=== PATIENT | male | born 1950 | race Caucasian/White ===

== ENCOUNTER → 2018-01-09 12:50 | Outpatient (CLI) | payer MEDICARE ==
--- NOTE | ~2018-01-09 | EC ---
PATIENT:ANGELY URENA DATE OF SERVICE: 01/10/18 SEX: M MEDICAL RECORD: [id number] DATE OF : 54 LOCATION:[facility] AGE OF PATIENT: 67 ADMISSION DATE: 01/09/18 REFERRING PHYSICIAN: INTERPRETING PHYSICIAN: GUSTAVO WILLIAM MD ECHOCARDIOGRAM REPORT ECHO CHARGES CLINICAL DIAGNOSIS: ECHOCARDIOGRAPHIC MEASUREMENTS (adult normal given) AC root (d.<3.7cm) cm LV Septum d (<1.2 cm> cm Valve Excursion cm LV Septum (systole) cm Left Atria (s.<4.0cm> cm LVPW d(<1.2cm) cm RV (d.<2.3cm) cm LVPW (sytole) cm LV diastole(<5.6CM) cm MV E-F(>70mm/sec) cm LV systole cm LVOT Diameter cm MV exc.(>10mm) cm Est.ejection fraction (50-75%) % Pericardial Effusion DOPPLER: LVIT cm/sec A cm/sec E cm/sec LA cm/sec RVSP mmHg LVOT cm/sec AOP1/2T m/s Asc. Ao cm/sec RVOT cm/sec RA cm/sec PA cm/sec AV Gradient Peak mmHg AV Mean mmHg AV Area cm MV Gradient Peak mmHg MV Mean mmHg MV Area cm COMMENTS: Weathercaster: Materials Management Supervisor: LASHONDA DATE OF SERVICE: 01/09/2018 PROCEDURE: Transthoracic echocardiogram. FINDINGS: 1. The patient has difficult to view structures. Endocardium is difficult to evaluate; however, it appears the patient has mild concentric left ventricular hypertrophy. There is mild global hypokinesis with ejection fraction of 50% and inflow characteristics across the mitral valve are consistent with diastolic dysfunction. ECHOCARDIOGRAM REPORT [id number] ANGELY URENA 2. The aortic valve is trileaflet, normal structure, normal function. 3. The mitral valve has trace to mild mitral regurgitation, otherwise normal. 4. Tricuspid valve is normal. 5. Right ventricle is moderately dilated. 6. The right atrium is moderately dilated. Both have normal function. RVSP is normal. There is no pericardial effusion. Pulmonic valve is grossly normal. CONCLUSIONS: The patient has evidence of mild cardiomyopathy, mild dilatation of right-sided structures, and evidence of hypertensive heart disease. TRANSINT:[id number] Voice Confirmation ID: [id number] DOCUMENT ID: [id number] 01/16/2018 Edited to correct date of service, dmm. GUSTAVO WILLIAM MD at 1001 CC: [id number] DICTATION DATE: 01/11/18 0741 BILINGUAL PATIENT SUPPORT CASEWORKER: 01/11/18 0950 DEP CLI 01/09/18 [place] [id number] [place] [id number]
== END | disposition home or self-care (01) ==
LOC: D.ECHO 12:50
DX: R06.02 Shortness of breath (principal); I20.8 Other forms of angina pectoris; R00.2 Palpitations

== ENCOUNTER → 2018-01-10 16:34 | Outpatient (CLI) | payer MEDICARE ==
[2018-01-10 19:02] LABS: CHOL - HDL RATIO 3.2 ratio (2.3-4.9); LDL-HDL RATIO 1.5 ratio (1.5-3.5)
== END | disposition home or self-care (01) ==
LOC: D.LABREF 16:34
PROVIDERS: Internal Medicine Cardiovascular Disease
DX: I10 Essential (primary) hypertension (principal); I20.9 Angina pectoris, unspecified